=== PATIENT | male | born 1965 | race Caucasian/White ===

== ENCOUNTER 2016-07-29 18:39 | Emergency (ER) | payer OTHER ==
[~2016-07-29 18:39] MED LIST: CARAFATE 1 GM TA1 GM PO; CHRONULAC20 GM/30 M PO; FOLIC ACID 1 MG1 MG PO; IBUPROFEN800 MG PO; NADOLOL20 MG PO; OXYCODONE HCL5 MG PO; POLYTRIM EYE DR10 ML OP; PRENATAL TABLE1 EAC1 PO; PROTONIX40 MG PO; PROZAC40 MG PO; SYNTHROID125 MCG PO; VIAGRA100 MG PO; VISTARIL 25 MG25 MG PO; VITAMIN C 500500 MG PO; WELLBUTRIN 75 M75 MG PO; ZOFRAN ODT4 MG PO; ZYLOPRIM 100 M100 MG PO
[2016-07-29 21:19] LABS: HEMOGLOBIN 13.6 gm/dl (14.0-17.5); RED BLOOD COUNT 3.82 M/UL (4.20-5.50); WHITE BLOOD COUNT 7.8 K/UL (4.5-11.0)
== END 2016-07-30 00:55 | disposition home or self-care (01) ==
LOC: ER1 18:39
PROVIDERS: Family Medicine
DX: R10.31 Right lower quadrant pain (principal); R11.0 Nausea; Z90.49 Acquired absence of other specified parts of digestive tract; Z79.899 Other long term (current) drug therapy
CPT/HCPCS: 36415; 80053; 81001; 82140; 83690; 85025; 96374; 96375; 99284; J2270; J2405

== ENCOUNTER 2016-08-24 21:09 | Emergency (ER) | payer OTHER ==
[2016-08-25 01:34] LABS: BUN/CREATININE RATIO 18 (0-10)
[2016-08-25 01:41] LABS: HEMOGLOBIN 10.6 gm/dl (14.0-17.5); RED BLOOD COUNT 2.95 M/UL (4.20-5.50); WHITE BLOOD COUNT 4.9 K/UL (4.5-11.0)
== END 2016-08-25 04:06 | disposition home or self-care (01) ==
LOC: ER1 21:09
PROVIDERS: Family Medicine
DX: R10.9 Unspecified abdominal pain (principal); D69.6 Thrombocytopenia, unspecified; R31.9 Hematuria, unspecified; F10.10 Alcohol abuse, uncomplicated; Y90.0 Blood alcohol level of less than 20 mg/100 ml; E80.6 Other disorders of bilirubin metabolism
CPT/HCPCS: 36415; 71010; 80053; 81001; 85025; 96374; 99284; G0480; J2270; J2405; J7030